=== PATIENT | female | born 1940 | race Caucasian/White ===

== ENCOUNTER 2020-09-17 18:00 | Outpatient (REF) | payer MEDICARE, SELFPAY | END 2020-09-17 18:01 | disposition home or self-care (01) | LOC: NCHCN 18:00 | PROVIDERS: PCP Physician Assistant Medical; Visit Provider Physician Assistant Medical | DX: L03.90 Cellulitis, unspecified (principal) | CPT/HCPCS: 87077; 87070; 87186; 87205 ==